=== PATIENT | male | born 1985 | race Caucasian/White ===

== ENCOUNTER 2016-10-16 21:14 | Emergency (ER) | payer BC ==
[2016-10-16 21:26] VITALS: PULSE 67; TEMP 98.1
--- NOTE | 2016-10-16 22:02 | EDPHY ---
H & P Time Seen by Provider: 10/16/16 21:39 HPI/ROS: This patient sustained a finger tip skin avulsion while chopping vegetables shortly prior to arrival to the left index finger. He reports moderate pain and moderate bleeding. The bleeding slowed with direct pressure but continues. The incident occurred at home. He drove himself here by private vehicle for evaluation. ROS: No numbness proximally to the finger. No other skin injuries. No bony pain. 5 point ROS is otherwise negative Past Medical/Surgical History: Immunizations up-to-date. Otherwise healthy Social History: Right handed, works as an wireless network engineer. Smoking Status: Never smoked Physical Exam: Physical Exam Vital signs are normal. General: No acute distress Cardiac: Brisk capillary refill is intact throughout. Skin: No rash or pallor. Extremities: Atraumatic normal except for left index finger that exam is notable for a 1 cm skin avulsion with moderate bleeding to the ulnar aspect of the distal phalanx. No nail bed involvement. No bony exposure. Neuro: Alert with no sensorimotor deficits in the affected digit. Constitutional: Initial Vital Signs Temperature (C) 36.7 C 10/16/16 21:23 Heart Rate 67 10/16/16 21:23 Respiratory Rate 16 10/16/16 21:23 Blood Pressure 129/79 H 10/16/16 21:23 O2 Sat (%) 96 10/16/16 21:23 O2 Delivery Mode Room Air Allergies/Adverse Reactions: No Known Allergies Allergy (Unverified 10/16/16 21:23) Home Medications: Medication Instructions Recorded NK [No Known Home Meds] 10/16/16 MDM/Departure - MDM Procedures: Digital block: After verbal consent, using a 50 50 mix of 0.5% Marcaine 2% plain lidocaine, 27 gauge needle, chlorhexidine scrub under sterile conditions- 3 injections were administered to the base of the affected finger, 8 mL with good effect. Patient tolerated this well. There were no complications. ED Course/Re-evaluation: Our tech cleaned the finger tip wound and applied Surgicel dressing with good hemostasis. We counseled regarding wound care. Discussion: Skin avulsion without bony exposure or other complicating factors. - Depart Disposition: Home, Routine, Self-Care Clinical Impression: Avulsion of fingertip Qualifiers: Encounter type: initial encounter Qualified Code(s): S61.209A - Unspecified open wound of unspecified finger without damage to nail, initial encounter Condition: Good Instructions: Skin Avulsion (ED) Additional Instructions: Diagnosis: Finger tip skin avulsion You were treated here with a digital block with a combination of lidocaine and Marcaine anesthetic. This will usually provide good pain control for 2-6 hours Plan: Keep the dressing in place in the finger elevated when possible for the next 2-3 days. Then soak the dressing off with half-strength peroxide and gently clean each day thereafter, apply a bandage and uses stack splint for protection until the wound heals. Take the bandage off at some parts of the day to get a to the wound. Ibuprofen and Tylenol for pain Return if he have significant bleeding despite the treatment plan or other concerns. Consider calling Dr. Waller to establish primary care physician Referrals: NONE *PRIMARY CARE P,. [Primary Care Provider] - As per Instructions Leann Waller MD [[facility] [place]] - As per Instructions
[2016-10-16 22:12] VITALS: BP 120/70; RESP 14; O2SAT 95
== END 2016-10-16 22:17 | disposition home or self-care (01) ==
LOC: CED 21:14
PROC: 3E0T3BZ Introduction of Anesthetic Agent into Peripheral Nerves and Plexi, Percutaneous Approach (ICD-10-PCS; principal; 2016-10-16)
DX: S61.201A Unspecified open wound of left index finger without damage to nail, initial encounter (principal); X58.XXXA Exposure to other specified factors, initial encounter; Y92.009 Unspecified place in unspecified non-institutional (private) residence as the place of occurrence of the external cause; Y99.8 Other external cause status; Y93.89 Activity, other specified